=== PATIENT | female | born 2000 | race Caucasian/White ===

== ENCOUNTER 2020-10-08 20:20 | Emergency (ER) | payer MEDICAID ==
[2020-10-08] MEDS ORDERED: traMADol 50 MG Tab ONE (21:00)
--- NOTE | 2020-10-08 21:02 | EDM.PDOC ---
ED HPI GENERAL MEDICAL PROBLEM - General Chief Complaint: General Stated Complaint: TOE PAIN Time Seen by Provider: 10/08/20 20:35 Source of Information: Reports: Patient History Limitations: Reports: No Limitations - History of Present Illness INITIAL COMMENTS - FREE TEXT/NARRATIVE: patient presented to the ER with a c/o right great toe pain. Reports a surgery on her toe for ingrown toenail in the [facility]. Was home about 3-4 hrs ago - and reports the pain is coming pain and the local anesthesia effect is wearing off. no fever or chills. She reports taking 600mg ibuprofen with minimal help. pain 7 out of 10. Left Toe-Hailux Pain Score (Numeric/FACES): 9 ED ROS GENERAL - Review of Systems Review Of Systems: See Below Constitutional: Reports: No Symptoms HEENT: Reports: No Symptoms Respiratory: Reports: No Symptoms Cardiovascular: Reports: No Symptoms GI/Abdominal: Reports: No Symptoms Neurological: Reports: No Symptoms Psychiatric: Reports: No Symptoms ED EXAM, GENERAL - Physical Exam Exam: See Below Exam Limited By: No Limitations General Appearance: Alert, No Apparent Distress Respiratory/Chest: No Respiratory Distress Cardiovascular: Regular Rate, Rhythm Neurological: Alert, Oriented, No Motor/Sensory Deficits Skin Exam: Other (right great toe dressing was removed - no e/o bleeding or infection - normal post-op course and changes. new dressing was applied) Course - Vital Signs Last Recorded V/S: Last Vital Signs Temp 37.7 C 10/08/20 20:33 Pulse 108 H 10/08/20 20:33 Resp 20 10/08/20 20:33 BP 134/83 10/08/20 20:33 Pulse Ox 99 10/08/20 20:33 - Re-Assessments/Exams Free Text/Narrative Re-Assessment/Exam: 10/08/20 21:01 wound was examined. no concerns. local abx ointment and new dressing was applied tramadol was prescribed for only 5 tabs ice the affected area Departure - Departure Time of Disposition: 21:02 Disposition: Home, Self-Care 01 Condition: Good Clinical Impression: Uncontrolled pain Great toe pain Qualifiers: Laterality: right Qualified Code(s): M79.674 - Pain in right toe(s) - Discharge Information *PRESCRIPTION DRUG MONITORING PROGRAM REVIEWED*: Not Applicable *COPY OF PRESCRIPTION DRUG MONITORING REPORT IN PATIENT LISA: Yes Instructions: Wound Care, Adult Forms: ED Department Discharge Additional Instructions: Discharge home. Tramadol 50mg 1 tablet by mouth every 8 hours as needed for pain. Ibuprofen as needed for pain. Antibiotic ointment applied to wound, keep toe clean and dry. Ice and elevate the left leg. Call or return to the ER if you have any questions or concerns. Sepsis Event Note (ED) - Evaluation Sepsis Screening Result: No Definite Risk - Focused Exam Vital Signs: Vital Signs Temp Pulse Resp BP Pulse Ox 10/08/20 20:33 37.7 C 108 H 20 134/83 99 - Problem List & Annotations (1) Great toe pain SNOMED Code(s): 300999558 Code(s): M79.676 - PAIN IN UNSPECIFIED TOE(S) Status: Acute Priority: Low Current Visit: Yes Qualifiers: Laterality: right Qualified Code(s): M79.674 - Pain in right toe(s) (2) Uncontrolled pain SNOMED Code(s): 34218155248702317 Code(s): R52 - PAIN, UNSPECIFIED Status: Acute Priority: Low Current Visit: Yes - Problem List Review Problem List Initiated/Reviewed/Updated: Yes - Assessment/Plan Plan: take pain meds as prescribed ice follow up with PCP\ daily wound check
== END 2020-10-08 21:05 | disposition home or self-care (01) ==
LOC: LB.ED 20:20
DX: M79.674 Pain in right toe(s) (principal)
CPT/HCPCS: 99283; A9270-GY